=== PATIENT | female | born 1965 | race Two or more races ===

== ENCOUNTER 2021-02-16 15:15 | Emergency (ER) | payer BC ==
[~2021-02-16] VITALS: Ht 165.1 cm; Wt 59.0 kg
[2021-02-16] MEDS ORDERED: CEPH250C2 MT (18:29)
[2021-02-16 18:50] VITALS: BP 129/78
== END 2021-02-16 18:52 | disposition home or self-care (01) ==
LOC: ER 15:15
DX: L03.115 Cellulitis of right lower limb (principal); Z98.890 Other specified postprocedural states
CPT/HCPCS: 99283

== ENCOUNTER 2022-12-01 12:32 | Emergency (ER) | payer BC ==
[~2022-12-01] VITALS: Ht 167.6 cm; Wt 61.0 kg
[~2022-12-01 12:32] MED LIST: CEPH250C2 MT
[2022-12-01] MEDS ORDERED: ONDANSETRON HCL 4MG/2ML INJ IV ONE (14:15)
[2022-12-01] MEDS ORDERED: MORPHINE SULFATE 2 MG/ML CPJ (NOT FOR IM USE) IV ONE ×3 (14:15→20:30)
[2022-12-01] MEDS ORDERED: SODIUM CHLORIDE 0.9% 1,000 ML IV ONE (14:15)
[2022-12-01 14:52] LABS: BASOPHILS % 0.4 % (0.0-2.0); EOSINOPHILS % 1.1 % (0.0-5.0); HEMATOCRIT. 41.7 % (36.0-48.0); HEMOGLOBIN. 13.7 g/dL (12.0-16.0); LYMPHOCYTES % 10.5 % (20.0-50.0); MEAN CORPUSCULAR HEMOGLOBIN 31.7 pg (28.0-32.0); MEAN CORPUSCULAR VOLUME 96.7 fL (81.0-99.0); MONOCYTES % 5.5 % (2.0-8.0); NEUTROPHILS % 82.5 % (40.0-76.0); PLATELET 118 x1000/uL (130-400); RED BLOOD CELL COUNT 4.31 mill/uL (4.2-5.4); RED CELL DISTRIBUTION WIDTH 14.3 % (11.6-14.6)
[2022-12-01 14:59] LABS: CHLORIDE 103 mEq/L (98-107)
[2022-12-01 15:22] LABS: HCG SCREEN NEGATIVE
[2022-12-01] MEDS ORDERED: PIPERACILLIN/TAZ 3.375G PREMIX 50 ML IV NR (16:00)
[2022-12-01] MEDS ORDERED: SODIUM CHLORIDE 0.9% 1000ML BAG (SEPSIS BOLUS) IV NR (16:00)
[2022-12-01] MEDS ORDERED: IOHEXOL-350 100 ML BOTTLE ONE (17:48)
[2022-12-01] MEDS ORDERED: ESMOLOL 2500MG PREMIX 250 ML IV ONE ×2 (18:30→19:00)
[2022-12-01 18:35] LABS: INR 1.6; PROTHROMBIN TIME 20.9 sec (9.6-11.0)
[2022-12-01 18:50] LABS: CLARITY URINE CLEAR (CLEAR); COLOR URINE YELLOW (YELLOW); KETONES URINE NEGATIVE (NEGATIVE); LEUKOCYTE ESTERASE URINE NEGATIVE (NEGATIVE); NITRITE URINE NEGATIVE (NEGATIVE); OCCULT BLOOD URINE 1+ (NEGATIVE); PROTEIN URINE 1+ (NEGATIVE); SPECIFIC GRAVITY URINE 1.073 (1.005-1.030); UROBILINOGEN URINE 0.2 E.U./dL (0.2-1.0)
[2022-12-02] MEDS ORDERED: NICARDIPINE 50 MG in SODIUM CHLORIDE 0.9% 230 ML IV STA (01:02)
[2022-12-02] MEDS ORDERED: NICARDIPINE 40MG/200ML PREMIX 200 ML IV NR (01:45)
[2022-12-02 03:32] VITALS: BP 97/41
== END 2022-12-02 04:39 | disposition short-term general hospital (02) ==
LOC: ER 12:32 → EDBEDREQTM 16:51 → EDBEDREQ 16:51 → CANRESERV 19:09 → ENRESERV 19:09 → ER 12-02 04:39
DX: I71.03 Dissection of thoracoabdominal aorta (principal); A41.9 Sepsis, unspecified organism; R65.20 Severe sepsis without septic shock; R03.0 Elevated blood-pressure reading, without diagnosis of hypertension; R00.1 Bradycardia, unspecified; M54.59 Other low back pain; R11.2 Nausea with vomiting, unspecified; Q87.40 Marfan syndrome, unspecified; M25.512 Pain in left shoulder; R20.0 Anesthesia of skin; E03.9 Hypothyroidism, unspecified; Z20.822 Contact with and (suspected) exposure to COVID-19
CPT/HCPCS: 36415; 71045; 71275; 74174; 80053; 81003; 82962; 83605; 83690; 83880; 84145; 84484; 84703; 85025; 85610; 87040; 87086; 87426; 93005; 96365; 96375; 96376; 99291; C9803; J2270; J2405; J2543; J3490; J7030; Q9967; Z7610; J7050

== ENCOUNTER 2025-02-14 10:32 | Inpatient (IN) | payer BC ==
[~2025-02-14] VITALS: Ht 167.6 cm; Wt 59.0 kg
[2025-02-14] MEDS: FAMOTIDINE 20MG TABLET PO ONE (10:55)
[2025-02-14] MEDS: MAGNESIUM/ALUMINUM HYDROXIDE/SIMETHICONE 30ML UDC PO ONE (10:55)
[2025-02-14] MEDS: ONDANSETRON 4MG ODT PO ONE (11:01)
[2025-02-14 11:21] LABS: CLARITY URINE CLEAR (CLEAR); COLOR URINE YELLOW (YELLOW); GLUCOSE URINE NEGATIVE (NEGATIVE); KETONES URINE NEGATIVE (NEGATIVE); LEUKOCYTE ESTERASE URINE NEGATIVE (NEGATIVE); NITRITE URINE NEGATIVE (NEGATIVE); OCCULT BLOOD URINE TRACE (NEGATIVE); PROTEIN URINE NEGATIVE (NEGATIVE); SPECIFIC GRAVITY URINE 1.017 (1.005-1.030); UROBILINOGEN URINE 0.2 E.U./dL (0.2-1.0)
[2025-02-14 11:26] LABS: EOSINOPHILS % 0.8 % (0.0-5.0); HEMATOCRIT. 40.2 % (36.0-48.0); HEMOGLOBIN. 12.8 g/dL (12.0-16.0); LYMPHOCYTES % 11.8 % (20.0-50.0); MEAN CORPUSCULAR HEMOGLOBIN 29.3 pg (28.0-32.0); MEAN CORPUSCULAR HGB CONC 31.9 g/dL (31.0-37.0); NEUTROPHILS % 82.4 % (40.0-76.0); RED BLOOD CELL COUNT 4.37 mill/uL (4.2-5.4); RED CELL DISTRIBUTION WIDTH 15.3 % (11.6-14.6)
[2025-02-14 11:30] LABS: TROPONIN I HIGH SENSITIVITY 4 ng/L (3.0-34)
[2025-02-14 11:31] LABS: ALANINE AMINOTRANSFERASE 10 IU/L (10-49); ALBUMIN 4.3 g/dL (3.2-4.8); ASPARTATE AMINOTRANSFERASE 19 IU/L (<34); BILIRUBIN DIRECT 0.1 mg/dL (<=3.0); BILIRUBIN TOTAL 0.6 mg/dL (0.1-1.0); PROTEIN TOTAL 8.2 g/dL (6.0-8.3)
[2025-02-14 11:35] LABS: DIFFERENTIAL COMMENT 1
[2025-02-14] MEDS: OXYCODONE HCL/ACETAMINOPHEN 5/325MG TABLET PO ONE (12:21)
[2025-02-14 12:32] LABS: SQUAMOUS EPITHELIAL CELL URINE 1+ /lpf (RARE/1+); WBC URINE 0-2 /hpf (0-2)
[2025-02-14 12:34] LABS: BACTERIA URINE TRACE
[2025-02-14 12:58] LABS: PLATELET 261 x1000/uL (130-400)
[2025-02-14 13:18] LABS: CHLORIDE 104 mEq/L (98-107); SODIUM 138 mEq/L (136-145)
[2025-02-14 13:19] LABS: CARBON DIOXIDE 24 mEq/L (21-32)
[2025-02-14 13:24] LABS: CREATININE 0.8 mg/dL (0.6-1.0); GLUCOSE 95 mg/dL (70-105); UREA NITROGEN BLOOD 14 mg/dL (9-23)
[2025-02-14] MEDS ORDERED: ESMOLOL 2500MG PREMIX 250 ML IV PRN (14:15)
[2025-02-14] MEDS: NICARDIPINE 40MG/200ML PREMIX 200 ML IV PRN (14:26)
[2025-02-14] MEDS: ESMOLOL 2500MG PREMIX 250 ML IV PRN (14:46)
[2025-02-14] MEDS: IOHEXOL-300 100 ML BOTTLE ONE (15:17)
[2025-02-14 21:14] LABS: TROPONIN I HIGH SENSITIVITY 7 ng/L (3.0-34)
[2025-02-15] VITALS (26 sets, daily range): BP systolic 104–139; BP diastolic 54–72; PULSE 53–78; RESP 12–21; TEMP 36.3–37.2; O2SAT 94–99
[2025-02-15] MEDS ORDERED: GUAIFENESIN 200MG/10ML SUGAR FREE UDC PO PRN (00:30)
[2025-02-15] MEDS ORDERED: ONDANSETRON HCL 4MG/2ML INJ IV PRN (00:30)
[2025-02-15] MEDS ORDERED: ACETAMINOPHEN 325MG TABLET PO PRN ×2 (00:30)
[2025-02-15] MEDS ORDERED: DOCUSATE SODIUM 100MG CAPSULE PO PRN (00:30)
[2025-02-15] MEDS ORDERED: IPRATROPIUM/ALBUTEROL 0.5-3(2.5)MG/3ML NEB HHN PRN (00:30)
[2025-02-15] MEDS ORDERED: NALOXONE HCL 0.4MG/ML VIAL IV PRN (03:30)
[2025-02-15] MEDS ORDERED: MORPHINE SULFATE 2 MG/ML INJ (NOT FOR IM USE) IV PRN (03:30)
[2025-02-15] MEDS ORDERED: IPRATROPIUM/ALBUTEROL 0.5-3(2.5)MG/3ML NEB NEB PRN (04:00)
[2025-02-15] MEDS: PANTOPRAZOLE 40MG DR TABLET PO SCH (05:50)
[2025-02-15] MEDS ORDERED: IOHEXOL-350 100 ML BOTTLE ONE (06:53)
[2025-02-15 08:26] LABS: BASOPHILS % 0.5 % (0.0-2.0); DIFFERENTIAL COMMENT 0; EOSINOPHILS % 2.8 % (0.0-5.0); HEMATOCRIT. 37.1 % (36.0-48.0); HEMOGLOBIN. 11.9 g/dL (12.0-16.0); LYMPHOCYTES % 23.6 % (20.0-50.0); MEAN CORPUSCULAR HEMOGLOBIN 29.1 pg (28.0-32.0); MEAN CORPUSCULAR VOLUME 91.1 fL (81.0-99.0); MEAN PLATELET VOLUME 9.8 fl (7.4-10.4); MONOCYTES % 5.9 % (2.0-8.0); NEUTROPHILS % 67.2 % (40.0-76.0); PLATELET 201 x1000/uL (130-400); RED BLOOD CELL COUNT 4.08 mill/uL (4.2-5.4); RED CELL DISTRIBUTION WIDTH 15.3 % (11.6-14.6); WHITE BLOOD COUNT 4.8 x1000/uL (4.5-11.0)
[2025-02-15 08:39] LABS: CALCIUM 9.1 mg/dL (8.7-10.4); CARBON DIOXIDE 26 mEq/L (21-32); CHLORIDE 102 mEq/L (98-107); POTASSIUM 3.9 mEq/L (3.5-5.1); SODIUM 136 mEq/L (136-145)
[2025-02-15 08:43] LABS: CREATININE 0.7 mg/dL (0.6-1.0)
[2025-02-15 08:44] LABS: GLUCOSE 81 mg/dL (70-105)
[2025-02-15 08:45] LABS: UREA NITROGEN BLOOD 12 mg/dL (9-23)
[2025-02-15 08:46] LABS: PHOSPHORUS 3.4 mg/dL (2.5-4.9)
[2025-02-15] MEDS: AMLODIPINE 5MG TABLET PO SCH (09:00)
[2025-02-15] MEDS: METOPROLOL SUCCINATE 50MG ER TABLET PO SCH (09:45)
[2025-02-15 11:58] LABS: CLARITY URINE CLEAR (CLEAR); COLOR URINE YELLOW (YELLOW); GLUCOSE URINE NEGATIVE (NEGATIVE); KETONES URINE TRACE (NEGATIVE); LEUKOCYTE ESTERASE URINE NEGATIVE (NEGATIVE); NITRITE URINE NEGATIVE (NEGATIVE); OCCULT BLOOD URINE 2+ (NEGATIVE); PROTEIN URINE NEGATIVE (NEGATIVE); UROBILINOGEN URINE 0.2 E.U./dL (0.2-1.0)
[2025-02-15 12:17] LABS: MUCUS URINE TRACE /lpf (< = 2+); SQUAMOUS EPITHELIAL CELL URINE 1+ /lpf (RARE/1+)
[2025-02-15 12:18] LABS: RBC URINE 0-2 /hpf (0-2)
[2025-02-15 12:19] LABS: BACTERIA URINE TRACE
[2025-02-15 12:20] LABS: WBC URINE 0-2 /hpf (0-2)
[2025-02-15 13:16] LABS: *AMPHETAMINES SCREEN URINE NEGATIVE (NEGATIVE); *BARBITURATES SCREEN URINE NEGATIVE (NEGATIVE); *BENZODIAZEPINES SCREEN URINE NEGATIVE (NEGATIVE); *COCAINE SCREEN URINE NEGATIVE (NEGATIVE); CANNABINOID URINE SCREEN NEGATIVE (NEGATIVE); ECSTASY MDMA SCREEN URINE NEGATIVE (NEGATIVE); METHADONE URINE SCREEN NEGATIVE (NEGATIVE); OPIATES URINE SCREEN NEGATIVE (NEGATIVE); PHENCYCLIDINE URINE SCREEN NEGATIVE (NEGATIVE)
[2025-02-16] VITALS: BP 115/62; PULSE 58; RESP 18; TEMP 36.5; O2SAT 98
[2025-02-16 04:00] VITALS: BP 112/62; PULSE 55; RESP 18; TEMP 36.6; O2SAT 98
[2025-02-16 06:01] LABS: CHLORIDE 103 mEq/L (98-107); POTASSIUM 4.1 mEq/L (3.5-5.1); SODIUM 138 mEq/L (136-145)
[2025-02-16 06:02] LABS: CALCIUM 9.4 mg/dL (8.7-10.4); CARBON DIOXIDE 25 mEq/L (21-32)
[2025-02-16 06:05] LABS: BASOPHILS % 0.4 % (0.0-2.0); EOSINOPHILS % 3.9 % (0.0-5.0); HEMATOCRIT. 37.6 % (36.0-48.0); HEMOGLOBIN. 12.1 g/dL (12.0-16.0); LYMPHOCYTES % 21.8 % (20.0-50.0); MEAN CORPUSCULAR HEMOGLOBIN 29.5 pg (28.0-32.0); MEAN CORPUSCULAR HGB CONC 32.2 g/dL (31.0-37.0); MEAN CORPUSCULAR VOLUME 91.6 fL (81.0-99.0); MEAN PLATELET VOLUME 10.2 fl (7.4-10.4); MONOCYTES % 6.2 % (2.0-8.0); NEUTROPHILS % 67.7 % (40.0-76.0); PLATELET 210 x1000/uL (130-400); RED BLOOD CELL COUNT 4.11 mill/uL (4.2-5.4); RED CELL DISTRIBUTION WIDTH 15.2 % (11.6-14.6); WHITE BLOOD COUNT 6.2 x1000/uL (4.5-11.0)
[2025-02-16 06:07] LABS: CREATININE 0.9 mg/dL (0.6-1.0); GLUCOSE 100 mg/dL (70-105); UREA NITROGEN BLOOD 19 mg/dL (9-23)
[2025-02-16 06:09] LABS: T4 FREE 1.11 ng/dL (0.89-1.76); THYROID STIMULATING HORMONE 6.94 uIU/mL (0.55-4.78)
[2025-02-16 08:00] VITALS: BP 140/65; PULSE 59; RESP 19; TEMP 36.6; O2SAT 99
[2025-02-16] MEDS ORDERED: AMLO5TAB88 PO (10:50)
[2025-02-16] MEDS ORDERED: METO-385 PO (10:50)
[2025-02-16 12:00] VITALS: BP 110/56; PULSE 56; RESP 18; TEMP 36.5; O2SAT 98
[2025-02-16 15:20] VITALS: BP 115/61; PULSE 63; TEMP 97.3; O2SAT 97
[2025-02-16 16:00] VITALS: BP 101/56; PULSE 54; RESP 19; TEMP 36.7; O2SAT 99
[2025-02-17 04:09] LABS: CHLAMYDIA TRACHOMATIS NAA Negative (Negative); NEISSERIA GONORRHOEAE NAA Negative (Negative)
== END 2025-02-16 16:14 | disposition home or self-care (01) | DRG 760 ==
LOC: ER 10:32 → CANBEDREQ 15:51 → MICUSO 23:39 → 6WST 02-15 16:04
PROVIDERS: ADMIT Internal Medicine; ATTEND Internal Medicine
DX: N89.8 Other specified noninflammatory disorders of vagina (principal); K56.7 Ileus, unspecified; Q87.40 Marfan syndrome, unspecified; R74.01 Elevation of levels of liver transaminase levels; K41.90 Unilateral femoral hernia, without obstruction or gangrene, not specified as recurrent; R82.81 Pyuria; K40.90 Unilateral inguinal hernia, without obstruction or gangrene, not specified as recurrent; I10 Essential (primary) hypertension; Z79.899 Other long term (current) drug therapy
CPT/HCPCS: 36415; 71045; 71275; 74174; 74177; 76830; 76856; 80048; 80076; 80305; 81003; 83735; 84100; 84439; 84443; 84484; 85025; 87491; 87591; 93005; 93306; 93970; 99291; A4606; J3490; Q0162; Q9967